=== PATIENT | male | born 1990 | race Asian ===

== ENCOUNTER 2019-07-19 01:53 | Emergency (ER) | payer BC ==
[~2019-07-19] VITALS: Ht 167.6 cm; Wt 65.8 kg
[~2019-07-19 01:53] MED LIST: REGLAN10 M1 ORAL
--- NOTE | 2019-07-19 02:30 | NUR ---
ED Nurse Note: pt resting in bed, eyes closed, occasional vommiting, IV fluids infusing per order
--- NOTE | 2019-07-19 02:48 | Emergency Room Report ---
History of Present Illness General Chief Complaint: Vomiting Source: Patient Present Illness HPI 28-year-old male who presents with nausea and vomiting of several hours duration after dinner. Patient reported eating raw fish, drinking alcoholic wine, and smoking marijuana today. Patient reported similar symptoms after eating raw fish and wind in the past. Patient denies any history of cyclical vomiting syndrome. Patient has no past medical history. Patient has no abdominal surgeries.Denies any associated diarrhea Allergies: Coded Allergies: CEPHALEXIN (Verified Allergy, Unknown, 06/03/19) Nursing Documentation-[facility] Past Medical History: No Stated History Review of Systems Constitutional: Denies: chills, fever Respiratory: Denies: cough, shortness of breath Cardiovascular: Denies: chest pain, palpitations Gastrointestinal: Reports: abdominal pain, nausea, vomiting; Denies: diarrhea Genitourinary: Denies: hematuria, pain Musculoskeletal: Denies: joint swelling Skin: Denies: rash, lesions Neurological: Denies: headache, dizziness Physical Exam Vital Signs Date Time Temp Pulse Resp B/P (MAP) Pulse Ox O2 Delivery O2 Flow Rate FiO2 07/19/19 02:22 98.6 89 18 134/80 (98) 98 Room Air Sp02 EP Interpretation: reviewed General Appearance: well appearing, no apparent distress, non-toxic Head: normocephalic, atraumatic Eyes: bilateral eye normal inspection ENT: hearing grossly normal, EOM grossly intact, moist mucus membranes Neck: supple Respiratory: lungs clear, normal breath sounds, no respiratory distress, speaking full sentences Cardiovascular #1: regular rate, rhythm, normal capillary refill Cardiovascular #2: 2+ radial (R), 2+ radial (L) Gastrointestinal: non tender, soft, no organomegaly, no bruit, non-distended, no guarding, no hernia, no pulsatile mass, no rebound Rectal: deferred Musculoskeletal: moves extm spontaneously, no lower extremity edema Neurologic: grossly normal Psychiatric: mood/affect normal Skin: warm/dry, normal turgor Medical Decision Making ER Course 28-year-old male with no past medical history of abdominal surgeries who presents with nausea and vomiting for several duration after eating raw fish, wine and smoking marijuana. Will look for signs of dehydration. Will hydrate and give antiemetics. Reassess Last Vital Signs Date Time Temp Pulse Resp B/P (MAP) Pulse Ox O2 Delivery O2 Flow Rate FiO2 07/19/19 02:22 98.6 89 18 134/80 (98) 98 Room Air Reevaluation Impression Patient reevaluated. Patient tolerating p.o. Patient reported feeling much better. Patient discharged with follow-up with primary care doctor. Disposition: HOME, SELF-CARE Condition: Stable Scripts Ondansetron (Zofran) 4 Mg Tablet 4 MG ORAL Q8H PRN for Nausea & Vomiting, #10 TAB 0 Refills Prov: Jose M Rivera M.D. 07/19/19 Referrals: [facility] Patient Instructions: Nausea and Vomiting, Adult Additional Instructions: Please return to emergency room if unable to tolerate food or water after medication administration., Or any new symptoms arise. Jose M Rivera M.D. Jul 19, 2019 02:48
[2019-07-19 03:00] VITALS: BP 134/80
--- NOTE | 2019-07-19 03:22 | NUR ---
ED Nurse Note: Pt ambulated to ED from home c/o N/V x5hrs. Pt is diaphoretic and pale, VSS. Pt currently vommiting
[2019-07-19 03:38] LABS: BASOPHILS % (AUTO) 0.4 % (0.0-2.0); EOSINOPHILS % (AUTO) 0.1 % (0.0-3.0); HEMATOCRIT 45.1 % (42.0-52.0); HEMOGLOBIN 15.6 G/DL (14.2-18.0); LYMPHOCYTES % (AUTO) 19.1 % (20.0-45.0); MEAN CORPUSCULAR VOLUME 91 FL (80-99); MONOCYTES % (AUTO) 2.4 % (1.0-10.0); PLATELET COUNT 294 K/UL (150-450); RED BLOOD COUNT 4.97 M/UL (4.70-6.10); RED CELL DISTRIBUTION WIDTH 10.8 % (11.6-14.8); WHITE BLOOD COUNT 10.2 K/UL (4.8-10.8)
[2019-07-19 03:40] LABS: APPEARANCE,URINE CLEAR; BILIRUBIN, URINE NEGATIVE (NEGATIVE); COLOR,URINE PALE YELLOW; GLUCOSE, URINE (UA) NEGATIVE (NEGATIVE); KETONES,URINE NEGATIVE (NEGATIVE); LEUKOCYTE ESTERASE ,URINE NEGATIVE (NEGATIVE); NITRITE,URINE NEGATIVE (NEGATIVE); PH,URINE 8 (4.5-8.0); UROBILINOGEN,URINE NORMAL MG/DL (0.0-1.0)
[2019-07-19 03:50] LABS: ANION GAP 9 mmol/L (5-15); BLOOD UREA NITROGEN 13 mg/dL (7-18); CALCIUM 9.1 MG/DL (8.5-10.1); CARBON DIOXIDE 30 MMOL/L (21-32); CHLORIDE 103 MMOL/L (98-107); CREATININE 0.8 MG/DL (0.55-1.30); POTASSIUM 3.5 MMOL/L (3.5-5.1); PROTEIN,URINE NEGATIVE (NEGATIVE); SODIUM 142 MMOL/L (136-145)
[2019-07-19 03:53] LABS: ALANINE AMINOTRANSFERASE 25 U/L (12-78); ALBUMIN 4.6 G/DL (3.4-5.0); ALBUMIN/GLOBULIN RATIO 1.3 (1.0-2.7); ALKALINE PHOSPHATASE 54 U/L (46-116); ASPARTATE AMINO TRANSFERASE 18 U/L (15-37); BILIRUBIN,TOTAL 0.4 MG/DL (0.2-1.0)
[2019-07-19] MEDS ORDERED: Metoclopramide 10mg/2ml Inj ONE (04:14)
[2019-07-19] MEDS ORDERED: Metoclopramide 10mg/2ml Inj IVP ONE (04:15)
[2019-07-19] MEDS ORDERED: Mylanta II UD 30ml ORAL ONE (04:45)
[2019-07-19] MEDS ORDERED: Dicyclomine HCl 10mg/5ml oral soln ORAL ONE (04:45)
[2019-07-19] MEDS ORDERED: Lidocaine 2% Visc 15ml soln ORAL ONE (04:45)
[2019-07-19] MEDS ORDERED: ZOFRAN4 MG ORAL (04:57)
[2019-07-19 05:30] VITALS: BP 130/82
--- NOTE | 2019-07-19 05:30 | NUR ---
ER DISCHARGE NOTE: Patient is cleared to be discharged per ERMD, pt is aox4, on room air, with stable vital signs. pt was given dc and prescription instructions, pt was able to verbalize understanding, pt id band and iv site removed without complications. pt is able to ambulate with steady gait. pt took all belongings.
== END 2019-07-19 05:30 | disposition home or self-care (01) ==
LOC: EMR 02:30
DX: R11.2 Nausea with vomiting, unspecified (principal); R10.9 Unspecified abdominal pain; Z88.8 Allergy status to other drugs, medicaments and biological substances
CPT/HCPCS: 36415; 80053; 80307; 81003; 83690; 85025; 96361; 96374; 96375; 96376; 99284; J2405; J2765; J7030; S0028